=== PATIENT | male | born 1995 | race Caucasian/White ===

== ENCOUNTER 2022-07-22 20:36 | Emergency (ER) | payer OTHER ==
[~2022-07-22] VITALS: Ht 175.3 cm; Wt 65.8 kg
--- NOTE | 2022-07-22 20:36 | NUR ---
RADHA LOPEZ TO CHAIR B
--- NOTE | 2022-07-22 20:45 | NUR ---
DR. FINLEY ATTEMPTED TO SPEAK WITH PT ABOUT RECEIVING CARE FOR PREBOOKING, PT REFUSED VITAL SIGNS, REFUSED ANY CARE. PT IS A&OX4, [employer] 15, AMBULATORY BIB [place] [employer].
--- NOTE | 2022-07-22 20:57 | NUR ---
Patient does not wish to proceed with medical care recommended by DR. FINLEY. Patient given information related to possible complications, up to and including , which could occur as a result of leaving hospital at this time. Patient verbalizes understanding of risks involved leaving against medical advice. Patient has signed AMA form. PT IS IN CUSTODY WITH [employer]. REFUSED ALL CARE INCLUDING OBTAINING VS. OK TO BOOK, SEE BOOKING FORM
== END 2022-07-22 20:57 ==
LOC: MED 20:36
DX: Z02.89 Encounter for other administrative examinations (principal); S00.03XA Contusion of scalp, initial encounter; S00.81XA Abrasion of other part of head, initial encounter; X58.XXXA Exposure to other specified factors, initial encounter; Y92.89 Other specified places as the place of occurrence of the external cause; Y93.89 Activity, other specified; Y99.8 Other external cause status
CPT/HCPCS: 99283